=== PATIENT | male | born 1985 | race Asian ===

== ENCOUNTER 2023-12-03 15:24 | Emergency (ER) | payer OTHER ==
[~2023-12-03] VITALS: Ht 167.6 cm; Wt 75.0 kg
[2023-12-03 15:28] VITALS: O2SAT 97
[2023-12-03] MEDS: KETOROLAC 15MG/ML VIAL IV ONE (17:45)
[2023-12-03 17:55] LABS: EOSINOPHILS % 4.7 % (0.0-5.0); HEMATOCRIT. 46.1 % (42.0-52.0); HEMOGLOBIN. 15.6 g/dL (14.0-18.0); LYMPHOCYTES % 32.9 % (20.0-50.0); MEAN CORPUSCULAR HEMOGLOBIN 30.1 pg (28.0-32.0); MEAN CORPUSCULAR HGB CONC 33.9 g/dL (31.0-37.0); MEAN CORPUSCULAR VOLUME 88.9 fL (80.0-94.0); MEAN PLATELET VOLUME 9.3 fl (7.4-10.4); MONOCYTES % 7.7 % (2.0-8.0); NEUTROPHILS % 53.7 % (40.0-76.0); PLATELET 194 x1000/uL (130-400); RED BLOOD CELL COUNT 5.18 mill/uL (4.7-6.1); RED CELL DISTRIBUTION WIDTH 14.6 % (11.6-14.6); WHITE BLOOD COUNT 11.4 x1000/uL (4.5-11.0)
[2023-12-03 17:58] LABS: CHLORIDE 106 mEq/L (98-107); POTASSIUM 4.2 mEq/L (3.5-5.1); SODIUM 137 mEq/L (136-145)
[2023-12-03 17:59] LABS: CALCIUM 9.7 mg/dL (8.7-10.4); CARBON DIOXIDE 21 mEq/L (21-32)
[2023-12-03 18:04] LABS: CREATININE 0.8 mg/dL (0.6-1.3); GLUCOSE 85 mg/dL (70-105); UREA NITROGEN BLOOD 14 mg/dL (9-23)
[2023-12-03 18:06] LABS: ALANINE AMINOTRANSFERASE 76 IU/L (10-49); ASPARTATE AMINOTRANSFERASE 41 IU/L (<34); BILIRUBIN DIRECT 0.3 mg/dL (<=3.0); BILIRUBIN TOTAL 1.2 mg/dL (0.1-1.0)
[2023-12-03 18:07] LABS: PROTEIN TOTAL 7.6 g/dL (6.0-8.3)
[2023-12-03 18:08] LABS: TROPONIN I HIGH SENSITIVITY < 4 ng/L (3.0-53)
[2023-12-03 18:46] VITALS: TEMP 36.66960
[2023-12-03 21:31] LABS: TROPONIN I HIGH SENSITIVITY < 4 ng/L (3.0-53)
[2023-12-03] MEDS ORDERED: NAPR500T7 MT (21:49)
[2023-12-03 22:10] VITALS: BP 127/86; PULSE 98; RESP 16; O2SAT 99
== END 2023-12-03 22:20 | disposition home or self-care (01) ==
LOC: ER 15:24
DX: R07.89 Other chest pain (principal); R06.02 Shortness of breath; Z79.1 Long term (current) use of non-steroidal anti-inflammatories (NSAID)
CPT/HCPCS: 99285; 96374; 71045; 80076; 80048; 83880; 83690; 85025; 36415; 84484; 93005; J1885